=== PATIENT | female | born 1985 | race American Indian/Alaskan Native ===

== ENCOUNTER 2020-04-25 08:29 | Day surgery (SDC) | payer OTHER, SELFPAY ==
--- NOTE | 2020-04-16 15:08 | HP_ITS ---
DATE OF SERVICE: 04/25/2020 DATE OF PROPOSED SURGERY: April 25, 2020. PREOPERATIVE DIAGNOSES: 1. Hammertoe, left fifth toe. 2. Skin disease, left foot. PLANNED PROCEDURES: 1. Hammertoe repair, left fifth toe. 2. Excision of skin left foot. PLANNED ANESTHESIA: MAC anesthesia. CHIEF COMPLAINT AND HISTORY OF PRESENT ILLNESS: Rekha Quinteros is a 35-year-old female who relates history of painful hammertoes and painful skin involving both fifth toes, present over the past 1 year duration. She relates her pain is aggravated by shoe gear. Conservative treatment consisting of altered shoe gear as well as accommodative padding has proven ineffective and the patient is now requesting surgical treatment. PAST MEDICAL HISTORY: Remarkable for migraine headaches and asthma. CURRENT MEDICATIONS: The patient takes ibuprofen as needed. ALLERGIES: THE PATIENT HAS NO KNOWN ALLERGIES OR DRUG SENSITIVITIES. FAMILY HISTORY: Unremarkable. SOCIAL HISTORY: The patient denies smoking, denies use of any recreational drugs. She does relate occasional alcohol consumption. Also drinks 1 to 2 cups of coffee per day. PHYSICAL EXAMINATION: PODIATRIC PHYSICAL EXAM: VASCULAR EXAM: The patient displays +2/4 pulses. DP and PT arteries bilateral with normal capillary refill time noted bilateral feet. DERMATOLOGIC EXAM: Reveals inflamed keratotic skin on dorsal lateral aspect of bilateral fifth toe PIP joint. NEUROLOGIC EXAM: Reveals intact sensation bilateral. ORTHOPEDIC EXAM: Reveals hammertoe contracture, bilateral fifth toes. The patient was seen most recently in my office on April 11, 2020. Preoperative informed consent was obtained from the patient that day for her planned left foot surgery. Preoperative medical clearance has been provided by the patient's primary care physician. MALORIE Billy/CONNOR / [id number]
[2020-04-17 19:49] VITALS: BMI 27.2
--- NOTE | 2020-04-24 10:14 | HO.ANESPROP2 ---
Documented by User: Maddi Ita 04/24/20 10:15 HPI - Anesthesia Eval Consult details Narrative: 35yo F for Left Hammertoe Repair PCP cleared [facility] Past Medical History Medical History Asthma Migraine Surgical History Surgical History History of tonsillectomy Social History Social History Smoking Status: Never smoker Use of substances other than those prescribed or required for medical reasons: No Advance Directives: No Advance Directives Information Provided: No Advance Directives on File: No Meds Allergies Allergy/AdvReac Type Severity Reaction Status Date / Time No Known Allergies Allergy Verified 04/25/20 08:43 Home Medications Medication Instructions Recorded Confirmed Type albuterol sulfate [ProAir HFA] 2 puff PO Q4H PRN 04/17/20 04/17/20 History ascorbic acid (vitamin C) [Vitamin 1,000 mg PO DAILY 04/17/20 04/17/20 History C] biotin 10 mg PO DAILY 04/17/20 04/17/20 History cholecalciferol (vitamin D3) 125 mcg PO DAILY 04/17/20 04/17/20 History [Vitamin D3] ibuprofen 1 tab PO Q8H PRN 04/17/20 04/17/20 History multivitamin 1 tab PO DAILY 04/17/20 04/17/20 History vitamin Y00-dspxo acid 1 tab PO DAILY 04/17/20 04/17/20 History Exam Exam Date and Time: April 24, 2020 1014 Height,Weight and Vital Signs: Height 5 ft 8 in Weight 81.193 kg Pertinent Lab Results Pertinent Lab Results: CBC and BMP wnl per pcp note Assessment and Plan Assessment Anesthesia Assessment: Chart Reviewed Documented by User: Rodrigo Mitchell MD 04/25/20 09:23 [facility] Past Medical History Medical History Asthma Migraine Surgical History Surgical History History of tonsillectomy Social History Social History Smoking Status: Never smoker Use of substances other than those prescribed or required for medical reasons: No Advance Directives: No Advance Directives Information Provided: No Advance Directives on File: No Meds Allergies Allergy/AdvReac Type Severity Reaction Status Date / Time No Known Allergies Allergy Verified 04/25/20 08:43 Home Medications Medication Instructions Recorded Confirmed Type albuterol sulfate [ProAir HFA] 2 puff PO Q4H PRN 04/17/20 04/17/20 History ascorbic acid (vitamin C) [Vitamin 1,000 mg PO DAILY 04/17/20 04/17/20 History C] biotin 10 mg PO DAILY 04/17/20 04/17/20 History cholecalciferol (vitamin D3) 125 mcg PO DAILY 04/17/20 04/17/20 History [Vitamin D3] ibuprofen 1 tab PO Q8H PRN 04/17/20 04/17/20 History multivitamin 1 tab PO DAILY 04/17/20 04/17/20 History vitamin I33-sjrzt acid 1 tab PO DAILY 04/17/20 04/17/20 History Exam Airway Mallampati Class: II TM Dist: >3cm Neck ROM: Full Loose/Missing/Broken Teeth: No Heart: RRR Lungs: NL Assessment and Plan Assessment Anesthesia Assessment: Anesthesia Plan Discussed and Chart Reviewed Final Anesthetic Review NPO: Yes ASA Class: II Final Preanesthetic Review: No Changes in Pt Med Stat, Meds/Allgs Chart Reviewed, Consent Obtained/Reviewed and Anes Risks/Benef Reviewed Patient Risk: Low Procedure Risk: Low Anesthetic Plan Anesthetic Plan: MAC: Disposition: Standard PACU
[2020-04-25 08:48] VITALS: BP 100/57; PULSE 57; RESP 16; TEMP 36.5; O2SAT 99
[2020-04-25 08:55] LABS: UPreg QC Valid YES; Urine Pregnancy NEGATIVE (NEGATIVE)
[2020-04-25] MEDS: Lactated Ringers 1,000 ML 100 ML IVCONT (09:04)
--- NOTE | 2020-04-25 09:16 | MHC.SHP ---
Pre-Procedural Eval Section B Chief Complaint: hammer toe,left foot Allergies: Allergies Allergy/AdvReac Type Severity Reaction Status Date / Time No Known Allergies Allergy Verified 04/25/20 08:43 Plan I have reviewed the history and physical and performed a pertinent physical examination on my patient. No changes have occurred unless specified.
[2020-04-25 10:00] VITALS: BP 94/43; PULSE 58; RESP 16; TEMP 36.6; O2SAT 98
--- NOTE | 2020-04-25 10:02 | PM.PROC ---
Brief Operative Note Date of procedure: 04/25/20 Pre-op diagnosis: painful skin disease, hammertoe left 5th toe Post-op diagnosis: same Procedure: excision of skin lesion 2.2cm and hammertoe repair left fifth toe Anesthesia: MAC Surgeon: Lyle Dalal Analyst [employer]: Millie Rawls Estimated blood loss (mL): 0 Condition: stable
[2020-04-25 10:14] VITALS: BP 103/48; PULSE 56; RESP 16; TEMP 36.6; O2SAT 98
--- NOTE | 2020-04-25 10:39 | HO.POSTANES ---
Post Anesthesia Evaluation Post Anesthesia Evaluation Vital Signs: Vital Signs Temp Pulse Resp BP Pulse Ox 04/25/20 10:14 97.8 F 56 16 103/48 L 98 04/25/20 10:00 97.8 F 58 16 94/43 L 98 04/25/20 08:48 97.7 F 57 16 100/57 L 99 Anesthesia: Monitored Mental Status: Awake Pain Control: Satisfactory Nausea/Vomiting: None Hydration: Adequate Anesthesia-Related Issues: No Anes. Related Issues
--- NOTE | 2020-04-25 10:57 | OP_ITS ---
SURGEON: Lyle Dalal DPM PREOPERATIVE DIAGNOSIS: POSTOPERATIVE DIAGNOSIS: PROCEDURE PERFORMED: ESTIMATED BLOOD LOSS: COMPLICATIONS: ANESTHESIA: Consisted of local administration of a total of 3 mL of an equal mix of 2% lidocaine with epinephrine 1:100,000 and 0.5% Marcaine plain. Intravenous sedation was provided by the anesthesia department. ANESTHESIOLOGIST: Marlena. ASSISTANTS: Millie Rawls DPM. SPECIMENS: PREOPERATIVE DIAGNOSES: 1. Hammertoe, left 5th toe. 2. Painful skin disease, left 5th toe. POSTOPERATIVE DIAGNOSES: 1. Hammertoe, left 5th toe. 2. Painful skin disease, left 5th toe. PROCEDURES PERFORMED: 1. Hammertoe repair, left 5th toe. 2. Excision of painful skin lesion, left 5th toe. INTRODUCTION: The patient was brought to the operating room, placed on the operating table in the supine position. After having been suitably anesthetized with local infiltrative anesthesia, the left lower extremity was then prepped and draped in the usual sterile manner. Please note that prior to start of the procedure, the left foot was exsanguinated with an Esmarch bandage and left ankle tourniquet was inflated to 250 mmHg pressure for the duration of the procedures. EXCISION OF DISEASED SKIN, LEFT 5TH TOE. Attention was directed to the dorsum of the left 5th toe, where 2 converging semi-elliptical incisions were effected to excise the painful inflamed keratotic skin overlying the left 5th toe proximal interphalangeal joint. The incisions were 2.2 cm in length x 7 mm in width. The incisions were deepened in same plane and the ellipse of skin was excised from the wound in toto and sent to pathology. HAMMERTOE REPAIR, LEFT 5TH TOE. Through the previous incision, the skin margins were then underscored and retracted. The transverse incision was effected through the extensor tendon complex at the level of the proximal interphalangeal joint. The extensor tendon was underscored proximally and the hypertrophic head of the proximal phalanx was delivered from the wound and excised utilizing a power sagittal saw. The wound was irrigated with copious amounts of sterile saline. The extensor tendon was caught to maintain utilizing 3-0 Vicryl. The skin margins were closed with 4-0 nylon. CONCLUSION: At the conclusion of these procedures, the operative site was injected with 2 mL of Marcaine 0.5% plain and 1 mL of dexamethasone phosphate. Sterile Xeroform, Betadine-soaked gauze, 1-inch Conform, Kerlix fluffs, and 4-inch Conform were then applied to the left lower extremity. The left ankle tourniquet was deflated and normal blood flow was reestablished to the left lower extremity. The patient tolerated the surgery and anesthesia well and left the operating room via cart to the recovery room with vital signs stable. FINAL DISPOSITION: The patient was discharged to home with instructions for self-care and include the followin. To keep the dressings dry, clean, and intact. 2. To keep the left leg elevated with ice above the ankle. 3. Take all medications as prescribed. 4. To limit activity to minimum. 5. To always use surgical shoe and crutches if needed. 6. Lastly, the patient has prescriptions for Motrin or ibuprofen 800 mg total #90, one p.o. t.i.d. p.c. and also prescription for oxycodone 5 mg total #10, one p.o. q.6h. MALORIE Billy/CONNOR / [id number]
== END 2020-04-25 10:49 | disposition home or self-care (01) ==
LOC: HO.SSS 08:29
PROVIDERS: Nurse Practitioner; Visit Provider Podiatrist
PROC: (CPT 28285; principal; 2020-04-25 10:00)
DX: M20.42 Other hammer toe(s) (acquired), left foot (principal); J45.909 Unspecified asthma, uncomplicated; Z79.899 Other long term (current) drug therapy
CPT/HCPCS: 28285; 81025; 88304; 88311; J0690; J1100; J2250; J3010

== ENCOUNTER 2020-05-22 12:49 | Outpatient (RCR) | payer OTHER, SELFPAY | END 2020-06-12 09:46 | disposition home or self-care (01) | LOC: HO.WCC 12:49 | PROVIDERS: Visit Provider Surgery | DX: T81.41XD Infection following a procedure, superficial incisional surgical site, subsequent encounter (principal); L08.89 Other specified local infections of the skin and subcutaneous tissue; Z79.2 Long term (current) use of antibiotics | CPT/HCPCS: 99213 ==

== ENCOUNTER 2020-07-26 15:14 | Outpatient (REF) | payer OTHER, SELFPAY ==
--- NOTE | ~2020-07-26 | MM_ITS ---
EXAMINATION: MM SCREENING DIGITAL BREAST TOMOSYNTHESIS, BILATERAL CLINICAL INFORMATION: Screening. Asymptomatic. The lifetime risk of breast cancer based on the Tyrer-Cuzick Model is 13%. COMPARISON: Outside bilateral mammography 10/24/2019, and right mammography 04/25/2013 ([facility]) TECHNIQUE: Digital breast tomosynthesis is performed in both the craniocaudal and mediolateral oblique views along with computer-aided detection (CAD). Synthesized 2D images are generated from the tomosynthesis. FINDINGS: There are scattered areas of fibroglandular density (ACR BI-RADS breast composition Category b). Breast tissue composition borders on heterogeneously dense. Parenchymal pattern is similar to outside exams. There is no developing density or interval mass or architectural abnormality or abnormal calcifications. The skin contours are smooth. MM/MM tomosynthesis screening BI IMPRESSION: No mammographic evidence of malignancy. ASSESSMENT: BI-RADS 1: Negative RECOMMENDATION: Routine annual mammography screening. This patient's information was entered into a reminder system with a target due date for their next mammogram.
== END 2020-07-26 15:15 | disposition home or self-care (01) ==
LOC: HO.MAMMO 15:14
PROVIDERS: Visit Provider Physician Assistant
DX: Z12.31 Encounter for screening mammogram for malignant neoplasm of breast (principal)
CPT/HCPCS: 77063; 77067

== ENCOUNTER 2020-10-24 08:27 | Day surgery (SDC) | payer OTHER, SELFPAY ==
[2020-10-18 10:50] VITALS: BMI 25.5
--- NOTE | 2020-10-23 10:26 | P.CONAN_ITS ---
Documented by User: Maddi Jean Baptiste 10/23/20 10:26 HPI - Anesthesia Eval Consult details Narrative: 35yo F for Hammertoe Repair 5th Toe with Excision of Skin Right Foot s/p Left side with MAC 04[facility] Past Medical History Medical History (Updated 10/24/20 @ 09:30 by Shannan Ansari MD) Asthma Migraine Surgical History Surgical History History of tonsillectomy Hx of hammer toe correction Social History Social History Alcohol intake: current Alcohol intake frequency: holidays/special occasions only Patient Tobacco Use Status: Never used Tobacco Use of substances other than those prescribed or required for medical reasons: No Have you been hit, kicked, punched, or otherwise hurt by someone within the past year? If so, by whom?: No Are you DNR?: No Advance Directives: No Advance Directives Information Provided: No Advance Directives on File: No Patient : No FDLMP: 09/25/2020 : No Poor oral hygiene: No Meds Allergies Allergy/AdvReac Type Severity Reaction Status Date / Time No Known Allergies Allergy Verified 10/18/20 10:47 Home Medications Medication Instructions Recorded Confirmed Last Taken Type albuterol sulfate 90 mcg/actuation 2 puff PO Q4H PRN 04/17/20 10/18/20 Unknown History aerosol inhaler (ProAir HFA) ascorbic acid (vitamin C) 1,000 mg 1,000 mg PO DAILY 04/17/20 10/18/20 Unknown History tablet (Vitamin C) cholecalciferol (vitamin D3) 125 125 mcg PO DAILY 04/17/20 10/18/20 Unknown History mcg (5,000 unit) tablet (Vitamin D3) ibuprofen 800 mg tablet 1 tab PO Q8H PRN 04/17/20 10/18/20 Unknown History Exam Exam Date and Time: October 23, 2020 1026 Height,Weight and Vital Signs: Height 5 ft 8 in Weight 76.204 kg Assessment and Plan Assessment Anesthesia Assessment: Chart Reviewed Documented by User: Shannan Ansari MD 10/24/20 09:31 [facility] Past Medical History Medical History (Updated 10/24/20 @ 09:30 by Shannan Ansari MD) Asthma Migraine Family History Family history of problems with anesthesia: No Surgical History Surgical History History of tonsillectomy Hx of hammer toe correction History of Problems with Anesthesia: No Social History Social History Alcohol intake: current Alcohol intake frequency: holidays/special occasions only Patient Tobacco Use Status: Never used Tobacco Use of substances other than those prescribed or required for medical reasons: No Have you been hit, kicked, punched, or otherwise hurt by someone within the past year? If so, by whom?: No Are you DNR?: No Advance Directives: No Advance Directives Information Provided: No Advance Directives on File: No Patient : No FDLMP: 09/25/2020 : No Poor oral hygiene: No Meds Allergies Allergy/AdvReac Type Severity Reaction Status Date / Time No Known Allergies Allergy Verified 10/18/20 10:47 Home Medications Medication Instructions Recorded Confirmed Last Taken Type albuterol sulfate 90 mcg/actuation 2 puff PO Q4H PRN 04/17/20 10/18/20 Unknown History aerosol inhaler (ProAir HFA) ascorbic acid (vitamin C) 1,000 mg 1,000 mg PO DAILY 04/17/20 10/18/20 Unknown History tablet (Vitamin C) cholecalciferol (vitamin D3) 125 125 mcg PO DAILY 04/17/20 10/18/20 Unknown History mcg (5,000 unit) tablet (Vitamin D3) ibuprofen 800 mg tablet 1 tab PO Q8H PRN 04/17/20 10/18/20 Unknown History Exam Height,Weight and Vital Signs: Height 5 ft 8 in Weight 76.204 kg Vital Signs Temp Pulse Resp BP Pulse Ox 10/24/20 08:56 98.9 F 62 18 112/60 99 Pertinent Lab Results Pertinent Lab Results: Lab Results 10/24/20 Range/Units 08:30 Urine Test NEGATIVE (NEGATIVE) Airway Mallampati Class: II TM Dist: >3cm Neck ROM: Full Loose/Missing/Broken Teeth: No Heart: RRR Lungs: CTAB. No wheezes Assessment and Plan Assessment Anesthesia Assessment: Anesthesia Plan Discussed Final Anesthetic Review Family History of Problems with Anesthesia: No History of Problems with Anesthesia: No NPO: Yes ASA Class: II Final Preanesthetic Review: No Changes in Pt Med Stat, Meds/Allgs Chart Reviewed, Consent Obtained/Reviewed and Anes Risks/Benef Reviewed Patient Risk: Low Procedure Risk: Low Assessment/Block/Sedation in SS: Assess/Block/Sedation-SS Anesthetic Plan Anesthetic Plan: MAC: Disposition: Standard PACU
--- NOTE | 2020-10-23 14:51 | HP_ITS ---
DATE OF SERVICE: 10/24/2020 DATE OF PROPOSED SURGERY: October 24, 2020. PREOPERATIVE DIAGNOSES: 1. Hammertoe, right fifth toe. 2. Painful skin disease, right fifth toe. PLANNED PROCEDURES: 1. Hammertoe repair, right fifth toe. 2. Excision of painful skin, right 5th toe. PLANNED ANESTHESIA: MAC anesthesia. CHIEF COMPLAINT AND HISTORY OF PRESENT ILLNESS: Rekha Quinteros is a 35-year-old female who relates history of painful skin and bone disease involving the right 5th toe, present over the past several years duration. Her pain is aggravated by shoe gear and walking activity. Conservative treatment consisting of rest, altered shoe gear as well as protective padding has proven ineffective and the patient is now requesting surgical treatment. PAST MEDICAL HISTORY: Remarkable for asthma and migraine headaches. MEDICATIONS: The patient denies taking any medications currently. ALLERGIES: THE PATIENT HAS NO KNOWN ALLERGIES OR DRUG SENSITIVITIES. FAMILY HISTORY: Remarkable for hypertension. SOCIAL HISTORY: The patient denies smoking, denies use of any recreational drugs. Drinks typically 1 to 2 cups of coffee per day and does relate alcohol consumption. PODIATRIC PHYSICAL EXAM: VASCULAR EXAM: The patient displays normal pulses and normal cap refill time of all digits, both feet. ORTHOPEDIC EXAM: Reveals a rigid hammertoe contracture of the right fifth toe. NEUROLOGIC EXAM: Reveals intact sensation. DERMATOLOGIC EXAM: Reveals intact skin with keratoses noted of the right fifth toe proximal interphalangeal joint. The patient was seen most recently in my office on October 07, 2020. Preoperative informed consent was obtained from the patient that day for her planned right foot surgery. Preoperative medical clearance has been provided by the patient's primary care physician, Dr. Juliana Koehler, she is at [address] MALORIE Billy/CONNOR / [id number]
[2020-10-24] VITALS (7 sets, daily range): BP systolic 96–112; BP diastolic 45–61; PULSE 55–62; RESP 18; TEMP 36.3–37.2; O2SAT 96–100; BMI 25.5
[2020-10-24 08:48] LABS: UPreg QC Valid YES; Urine Pregnancy NEGATIVE (NEGATIVE)
[2020-10-24] MEDS: Lactated Ringers 1,000 ML 100 ML IVCONT (09:07)
--- NOTE | 2020-10-24 10:25 | MHC.SHP ---
Pre-Procedural Eval Section A Date of Service: 10/24/20 The patient is an INPATIENT: No Changes since office visit: No Cold of Flu in the past 2 weeks, No New Medical Problems, No Changes in Medication and No Patient answered all questions The History & Physical has been completed within 30 days and I have reviewed it.: Yes Section B Chief Complaint: hammer toe repair,skin disease Details of Present Illness: pain with shoes and activity Relevant Family History (Specify if Yes): No Relevant Social History: None Medical History: No relevant PMH Allergies: Allergies Allergy/AdvReac Type Severity Reaction Status Date / Time No Known Allergies Allergy Verified 10/24/20 09:53 Plan Diagnosis/Plan: Unchanged I have reviewed the history and physical and performed a pertinent physical examination on my patient. No changes have occurred unless specified.
--- NOTE | 2020-10-24 11:06 | PM.PROC ---
Brief Operative Note Date of procedure: 10/24/20 Pre-op diagnosis: hammertoe right 5th toe, skin disease right 5th toe Post-op diagnosis: same Procedure: hammertoe repair right 5th toe, excision of skin 2.1cm in length right foot Anesthesia: MAC Surgeon: Lyle Dalal [employer] Professionals: Millie Rawls Estimated blood loss (mL): 1.0 Condition: stable Disposition: same day
--- NOTE | 2020-10-24 11:58 | OP_ITS ---
SURGEON: Lyle Dalal DPM PREOPERATIVE DIAGNOSIS: POSTOPERATIVE DIAGNOSIS: PROCEDURE PERFORMED: ESTIMATED BLOOD LOSS: COMPLICATIONS: ANESTHESIA: Consisted of local administration of a total of 3 mL of an equal mix of 2% lidocaine with epinephrine 1:100,000 and 0.5% Marcaine plain. Intravenous sedation was provided by the anesthesia department. ASSISTANTS: Millie Rawls DPM. SPECIMENS: PREOPERATIVE DIAGNOSES: 1. Hammertoe, right fifth toe. 2. Painful skin disease, right foot. POSTOPERATIVE DIAGNOSES: 1. Hammertoe, right fifth toe. 2. Painful skin disease, right foot. PROCEDURES PERFORMED: 1. Hammertoe repair, right fifth toe. 2. Excision of painful skin lesion, right 5th toe measuring 2.1 cm in length x 8 mm in width. INTRODUCTION: The patient was brought to the operating room, placed on the operating table in the supine position. After having been suitably anesthetized with local infiltrative anesthesia, the right lower extremity was then prepped and draped in the usual sterile manner. Please note that prior to the start of the procedure, right foot was exsanguinated utilizing Esmarch bandage and right ankle tourniquet was inflated to 230 mmHg pressure for the duration of the procedures. EXCISION OF PAINFUL SKIN, RIGHT FIFTH TOE. Attention was directed to the dorsal aspect of the right fifth toe, where 2 converging semi-elliptical incisions measuring 2.1 cm in length x 8 mm in width were effected, centered over painful skin lesion dorsally over the proximal interphalangeal joint of the right fifth toe. The incision was deepened in same plane and the ellipse of skin was excised from the wound in toto. HAMMERTOE REPAIR. Through these previous skin incisions, the skin margins were then underscored and retracted. A transverse incision was then effected through the extensor tendon complex at the level of the proximal interphalangeal joint. The extensor tendon was underscored and retracted. The hypertrophic head of the proximal phalanx was then delivered from the wound and then excised utilizing a power sagittal saw. The wound was irrigated with copious amounts of sterile saline. The extensor tendon was then caught to maintain in correct position utilizing 3-0 Vicryl. Skin margins were closed with 4-0 nylon. CONCLUSION: At the conclusion of these procedures, the operative site was dressed with Betadine soaked Xeroform and gauze. The operative area was injected with 1 mL of Marcaine 0.5% plain. The right ankle tourniquet was deflated. Normal blood flow was reestablished to the right lower extremity. The patient tolerated the surgery and anesthesia well and left the operating room via cart to the recovery room with vital signs stable. FINAL DISPOSITION: The patient is discharged home with instructions for self-care and include the followin. To keep the dressings dry, clean, and intact. 2. To keep the right leg elevated with ice above the ankle. 3. To take all medications as prescribed. 4. To limit activity to minimum. 5. To always use surgical shoe and crutches, partial weightbearing of the right foot. 6. The patient will be taking ibuprofen 800 mg 1 p.o. t.i.d. and also there is a prescription already filled for oxycodone 5 mg total #10, 1 p.o. q.6h p.r.n. pain. MALORIE Billy/[facility] / [id number]
== END 2020-10-24 12:47 | disposition home or self-care (01) ==
PROVIDERS: Nurse Practitioner; Visit Provider Podiatrist
PROC: (CPT 28285; principal; 2020-10-24 10:00)
DX: M20.41 Other hammer toe(s) (acquired), right foot (principal); L98.9 Disorder of the skin and subcutaneous tissue, unspecified
CPT/HCPCS: 28285; 81025; 88304; 88311; J0690; J1100; J2250; J2405; J3010

== ENCOUNTER 2023-07-01 13:58 | Outpatient (AMB) | payer OTHER, SELFPAY ==
[2023-07-01 14:09] VITALS: BP 118/70; BMI 27.1
--- NOTE | 2023-07-01 14:09 | MHC.PC.OV ---
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 Accompanied by: Self / Same As Patient Allergies No Known Allergies Allergy (Verified 07/01/23 14:18) Medication List - Last Reconciled 07/01/23 by Radha Crocker MD No Known Home Meds Tobacco use date assessed: 07/01/23 Dental Screening Dental Screen Date: 07/01/23 Did you have a dental visit in the last 12 months?: Yes Did you have a dental problem in the last 6 months where you did not have access to dental care?: No Was dental information given to patient?: Patient has dentist HPI HPI Comments History of Present Illness Details This is a 38-year-old female with moderate major depression and acute stress disorder secondary to a stressful situation at home with her daughter that comes today complaining of loss of concentration and being not able to work since last month. She has been follow by counseling at [facility] in [place] and would like to be on any medication as of now. Denies any suicidal thoughts. No chest pain or shortness of breath. [facility] Medical History (Updated 07/02/23 @ 14:14 by Radha Crocker MD) Physical exam Constipation by delayed colonic transit Overweight (BMI 25.0-29.9) Migraine Asthma Surgical History Breast implant status Hx of hammer toe correction History of tonsillectomy Family History Mother Hypertension Father Hypertension Dyslipidemia Social History Housing: House Alcohol intake: current Alcohol intake frequency: holidays/special occasions only Alcohol type: beer, wine and hard liquor Patient Tobacco Use Status: Never used Tobacco e-Cigarette/Vaping Use: Never Used Second Hand Smoke Exposure: No service: No Current occupational status: employed Current occupational exposures/hazards: No Cognitive needs: No Hearing needs: No Vision needs: No Questionnaire PHQ-9 Over the last 2 weeks, how often have you been bothered by any of the following problems? 1. Little interest or pleasure in doing things: nearly every day 2. Feeling down, depressed, or hopeless: nearly every day 3. Trouble falling or staying asleep, or sleeping too much: nearly every day 4. Feeling tired or having little energy: nearly every day 5. Poor appetite or overeating: nearly every day 6. Feeling bad about yourself - or that you are a failure or have let yourself or your family down: several days 7. Trouble concentrating on things, such as reading the newspaper or watching television: nearly every day 8. Moving or speaking so slowly that other people could have noticed. Or the opposite - being so fidgety or restless that you have been moving around a lot more than usual: nearly every day 9. Thoughts that you would be better off or of hurting yourself in some way: not at all Total score: 22 Depression Screening Interpretation: Positive Depression Screening Follow-up: Existing condition Depression Screening Done: Yes 70204 - PHQ-9 Billing: Yes Source: Developed by Drs. Moise Mcdonough, Mitali Schaeffer, Chidi Chaudhari and colleagues, with an educational helen from [employer]. Thrive Questionnaire Date Thrive assessed: 07/01/23 I am a: Patient What is your living situation today?: I have a steady place to live Within the past 12 months, did the food you bought not last and you didn't have the money to get more?: Never true Within the past 12 months, did you worry whether your food would run out before you got money to buy more?: Never true Do you have trouble paying for medicines?: No Do you have trouble getting transportation to medical appointments?: No Do you have trouble paying your heating and electricity bill?: No Do you have trouble taking care of your child, family member or friend?: No Do you have trouble with day-to-day activities such as bathing, preparing meals, shopping, managing finances, etc.?: No Are you currently unemployed and looking for a job?: No Are you interested in more education?: No Please select the resources that you would like help with: None Currently or been in a relationship where the following occur: no concerns reported THRIVE Score: 0 AUDIT C Alcohol Use Questionnaire (AUDIT-C) 1. How often do you have a drink containing alcohol?: Monthly or less 2. How many drinks containing alcohol do you have on a typical day when you are drinking?: 1 or 2 3. How often do you have six or more drinks on one occasion?: Never Total Score: 1 Score Reviewed/Action Taken: No CAMERON-7 AMB Questionnaire CAMERON-7 Date CAMERON - 7 assessed: 07/01/23 Feeling nervous, anxious, or on edge: 3 = Nearly every day Not being able to stop or control worryin = Nearly every day Worrying too much about different things: 3 = Nearly every day Trouble relaxin = Nearly every day Being so restless that it is hard to sit still: 3 = Nearly every day Becoming easily annoyed or irritable: 1 = Several days Feeling afraid as if something awful might happen: 3 = Nearly every day Total CAMERON-7 score (0-4 normal; 5-9 mild; 10-14 moderate; 15-21 severe): 19 Source: Developed by Drs. Moise Mcdonough, Mitali Schaeffer, Chidi Chaudhari and colleagues, with an educational helen from [employer]. CAMERON-7 Assessment Billing CAMERON-7 Assessment Tool: CAMERON-7 Assessment 12209 Review of Systems Const All systems reviewed & are unremarkable except as noted in HPI and below Eyes Reports no additional complaints, Denies change in vision and Denies other visual disturbances Card Denies chest pain at rest, Denies chest pain with activity, Denies edema, Denies irregular heart rhythm, Denies claudication, Denies dyspnea, Denies dyspnea on exertion, Denies orthopnea, Denies paroxysmal nocturnal dyspnea and Denies slow heart rate Resp Denies cough, Denies dyspnea and Denies dyspnea on exertion Psych Reports depression and Reports difficulty concentrating Physical exam (Primary Care) Vital Signs: Last Vital Signs BP 118/70 07/01/23 14:09 BMI result Body Mass Index 27.1 Tobacco/Smoking Status: Tobacco use Status Tobacco use date assessed 07/01/23 07/01/23 14:14 Patient Tobacco Use Status Never used Tobacco 07/01/23 14:14 e-Cigarette/Vaping Use Never Used 07/01/23 14:14 PHQ-9: PHQ-9 Score PHQ-9: Total score 22 07/01/23 14:22 Depression Screening Interpretation: Positive Depression Screening Follow-up: Existing condition Thrive Assessment: Date of Thrive Assessment Date Thrive assessed 07/01/23 07/01/23 14:14 Currently or been in a relationship where the following occur: no concerns reported Resp Effort & Inspection: normal respiratory effort Auscultation: clear to auscultation bilaterally Cardio Jugular venous distension: no JVD Rate: regular rate Rhythm: regular rhythm Heart sounds: S1 normal heart sound present and S2 normal heart sound present Extrem General: Yes full ROM Psych Affect: Sad affect present Assessment and Plan Assessment & Plan (1) Stress disorder, acute: Comment: follow by n Code(s): F43.0 - Acute stress reaction Plan: Continue counseling. FMLA fill out with her. (2) Moderate major depression: Code(s): F32.1 - Major depressive disorder, single episode, moderate Plan: Continue counseling. Coding Level of Care Code Est Pt Level 3 (32998) Diagnoses Stress disorder, acute F43.0 Moderate major depression F32.1 Additional Codes CAMERON-7 Assessment Billing - CAMERON-7 Assessment Tool: CAMERON-7 Assessment 77812 ([id number]) Time Spent (min) 20
== END 2023-07-01 14:55 | disposition home or self-care (01) ==
PROVIDERS: PCP Internal Medicine; Visit Provider Internal Medicine
DX: F43.0 Acute stress reaction (principal); F32.1 Major depressive disorder, single episode, moderate
CPT/HCPCS: 99213

== ENCOUNTER 2023-11-09 15:10 | Outpatient (AMB) | payer OTHER, SELFPAY ==
--- NOTE | 2023-11-09 15:15 | MHC.PC.OV ---
Vital Signs 11/09/23 15:16 Height 5 ft 8 in Weight 192 lb BMI 29.2 BP 110/70 Blood Pressure Location Lt brachial Position Sitting Intake Visit Reasons: annual exam Intake Note: Patient here for a physical exam Afterschool Required: No Accompanied by: Child Allergies No Known Allergies Allergy (Verified 11/09/23 15:28) Medication List - Last Reconciled 11/09/23 by Radha Crocker MD No Known Home Meds Tobacco use date assessed: 07/01/23 Dental Screening Dental Screen Date: 07/01/23 HPI HPI Comments History of Present Illness Details This is a 38-year-old female that comes for her physical exam. Last Pap smear was less than 2 years ago and was normal as per patient. She has moderate major depression that has markedly improved with counseling. No chest pain or shortness on breath. She is able to go back to work. [facility] Medical History (Updated 11/09/23 @ 15:42 by Radha Crocker MD) Physical exam Constipation by delayed colonic transit Overweight (BMI 25.0-29.9) Migraine Asthma Surgical History Breast implant status Hx of hammer toe correction History of tonsillectomy Family History (Updated 11/09/23 @ 15:32 by Radha Crocker MD) Mother Hypertension Father Hypertension Dyslipidemia Maternal Aunt Breast cancer Maternal Aunt Ovarian cancer Social History Housing: House Alcohol intake: current Alcohol intake frequency: holidays/special occasions only Alcohol type: beer, wine and hard liquor Patient Tobacco Use Status: Never used Tobacco e-Cigarette/Vaping Use: Never Used Second Hand Smoke Exposure: No service: No Current occupational status: employed Current occupational exposures/hazards: No Cognitive needs: No Hearing needs: No Vision needs: No Questionnaire Thrive Questionnaire Date Thrive assessed: 07/01/23 CAMERON-7 AMB Questionnaire CAMERON-7 Date CAMERON - 7 assessed: 07/01/23 Source: Developed by Drs. Moise Mcdonough, Mitali Schaeffer, Chidi Chaudhari and colleagues, with an educational helen from [employer]. Review of Systems Const All systems reviewed & are unremarkable except as noted in HPI and below Card Denies chest pain at rest, Denies chest pain with activity, Denies edema, Denies irregular heart rhythm, Denies claudication, Denies dyspnea, Denies dyspnea on exertion, Denies orthopnea, Denies paroxysmal nocturnal dyspnea and Denies slow heart rate Resp Denies cough, Denies dyspnea and Denies dyspnea on exertion GI Denies abdominal pain, Denies change in bowel habits, Denies excessive flatus, Denies nausea and Denies vomiting Denies urinary incontinence, Denies urinary hesitancy and Denies urinary urgency Musc Denies abnormal gait, Denies atrophy, Denies deformity and Denies limited range of motion Skin/Breast Denies bleeding lesions, Denies changing lesions and Denies rash Neuro Denies abnormal gait, Denies behavioral changes and Denies lack of coordination Psych Denies behavioral changes Physical exam (Primary Care) Vital Signs: Last Vital Signs BP 110/70 11/09/23 15:16 BMI result Body Mass Index 29.2 Tobacco/Smoking Status: Tobacco use Status Tobacco use date assessed 07/01/23 11/09/23 15:20 Patient Tobacco Use Status Never used Tobacco 11/09/23 15:20 e-Cigarette/Vaping Use Never Used 11/09/23 15:20 Thrive Assessment: Date of Thrive Assessment Date Thrive assessed 07/01/23 11/09/23 15:20 [facility] Head: Yes normal to inspection, Yes normocephalic and Yes atraumatic Ears: external ears normal General nose exam: Normal external nose present and No nasal discharge present Face and sinus: Yes sinuses nontender Mouth: lip normal Eyes General: appearance normal, both eyes and all related structures Eyelids: Yes eyelids normal Conjunctivae: conjunctivae normal Neck Neck: Yes normal visual inspection and Yes supple Resp Effort & Inspection: normal respiratory effort Auscultation: clear to auscultation bilaterally Cardio Jugular venous distension: no JVD Rate: regular rate Rhythm: regular rhythm Heart sounds: S1 normal heart sound present and S2 normal heart sound present GI Inspection: Yes normal to inspection Palpation (GI): Soft to palpation and nontender Auscultation: normal bowel sounds Skin General skin exam: no rashes or lesions noted Neuro General: no focal motor deficits Extrem General: Yes full ROM Psych Appearance: grossly normal Assessment and Plan Assessment & Plan (1) Physical exam: Code(s): Z00.00 - Encounter for general adult medical examination without abnormal findings Plan: Repeat in a year. (2) Moderate major depression: Code(s): F32.1 - Major depressive disorder, single episode, moderate Plan: Continue counseling as needed. Orders: Orders Vitamin D 25-OH Total Today E55.9 - Vitamin D deficiency, unspecified Comprehensive [place]. Panel Fast Today Z00.00 - Encounter for general adult medical examination without abnormal findings Lipid Panel Today Z00.00 - Encounter for general adult medical examination without abnormal findings Thyroid Stimulating Hormone Today E66.3 - Overweight Coding Level of Care Code Est Pt Prev Care 18-39y(72634) Diagnoses Physical exam Z00.00 Moderate major depression F32.1 Time Spent (min) 30
[2023-11-09 15:16] VITALS: BP 110/70; BMI 29.2
== END 2023-11-09 15:41 | disposition home or self-care (01) ==
PROVIDERS: PCP Internal Medicine; Visit Provider Internal Medicine
DX: Z00.00 Encounter for general adult medical examination without abnormal findings (principal); F32.1 Major depressive disorder, single episode, moderate
CPT/HCPCS: 99395

== ENCOUNTER 2023-11-23 08:58 | Outpatient (AMB) | payer OTHER, SELFPAY ==
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
[2023-11-23 09:01] VITALS: BP 120/78; BMI 28.7
== END 2023-11-23 09:25 | disposition home or self-care (01) ==
PROVIDERS: PCP Internal Medicine; Visit Provider Internal Medicine
DX: F43.0 Acute stress reaction (principal); F32.1 Major depressive disorder, single episode, moderate
CPT/HCPCS: 99213